=== PATIENT | male | born 1950 | race Caucasian/White ===

== ENCOUNTER → 2016-04-28 | Outpatient (CLI) | payer MEDICARE ==
--- NOTE | 2016-04-28 14:52 | RAD ---
Metastatic skeletal survey, 04/28/2016: History: Bone pain, multiple myeloma Multiple views of the bony skeleton were obtained with the following findings delineated: 1. A PA view of the chest reveals no rib fracture or destructive lesion. The lungs are clear. 2. A lateral view of the skull demonstrates several tiny well-defined calvarial lucencies. 3. AP and lateral views of the thoracic and lumbar spine demonstrate moderate scattered marginal spurs. No fracture or destructive bony lesion is seen. 4. An AP view of the pelvis reveals no abnormality. 5. AP views of both humeri and forearms demonstrate a single small punched-out lytic lesion in the distal right humeral shaft. A surgical anchor is noted at the left shoulder. 6. AP views of both femurs and lower legs demonstrate no fracture or destructive bony lesion. 7. AP and lateral views of the cervical spine demonstrate changes of an anterior fusion from C4 through C6. There is moderate degenerative change at the C6-7 disc level. No fracture or destructive bony lesion is seen. IMPRESSION: 1. Small focal calvarial and right humeral lucencies are compatible with the given history of multiple myeloma. 2. Moderate multilevel degenerative change in the spine.
== END | disposition home or self-care (01) ==
LOC: RAD 13:24
PROVIDERS: ATTEND Internal Medicine Hematology & Oncology
DX: C90.30 Solitary plasmacytoma not having achieved remission (principal); M89.8X8 Other specified disorders of bone, other site; D80.8 Other immunodeficiencies with predominantly antibody defects
CPT/HCPCS: 77075